=== PATIENT | female | born 1965 | race African-American/Black ===

== ENCOUNTER 2021-01-25 11:36 | Emergency (ER) | payer MEDICAID ==
[~2021-01-25] VITALS: Ht 180.3 cm; Wt 92.7 kg
[2021-01-25] MEDS ORDERED: LISI-893 PO (11:39)
[2021-01-25 13:43] VITALS: BP 147/92
[2021-01-25] MEDS ORDERED: DEXAMETHASONE 4 MG TABLET PO ONE (14:00)
== END 2021-01-25 14:09 | disposition home or self-care (01) ==
LOC: EMS 11:36
DX: S50.01XA Contusion of right elbow, initial encounter (principal); I10 Essential (primary) hypertension; Z88.6 Allergy status to analgesic agent; Z79.899 Other long term (current) drug therapy; W22.8XXA Striking against or struck by other objects, initial encounter; Y93.89 Activity, other specified; Y92.89 Other specified places as the place of occurrence of the external cause; Y99.8 Other external cause status
CPT/HCPCS: 73080; 99283; J8540

== ENCOUNTER 2021-07-19 12:21 | Emergency (ER) | payer MEDICAID ==
[~2021-07-19] VITALS: Ht 180.3 cm; Wt 85.9 kg
[~2021-07-19 12:21] MED LIST: LISI-893 PO
[2021-07-19 15:35] VITALS: BP 138/88
== END 2021-07-19 17:10 | disposition home or self-care (01) ==
LOC: EMS 12:25
DX: M25.561 Pain in right knee (principal); M25.562 Pain in left knee; I10 Essential (primary) hypertension; Z88.8 Allergy status to other drugs, medicaments and biological substances
CPT/HCPCS: 99283

== ENCOUNTER 2023-08-27 08:31 | Emergency (ER) | payer MEDICAID ==
[~2023-08-27] VITALS: Ht 180.3 cm; Wt 88.6 kg
[2023-08-27 08:37] VITALS: TEMP 98.4
[2023-08-27] MEDS: METHOCARBAMOL 500 MG TABLET PO ONE (09:39)
[2023-08-27] MEDS: ACETAMINOPHEN 500 MG TABLET PO ONE (09:40)
[2023-08-27] MEDS ORDERED: ACET-66 PO (10:41)
[2023-08-27] MEDS ORDERED: NAPR-1193 PO (10:41)
[2023-08-27] MEDS ORDERED: METH-659 PO (10:41)
[2023-08-27 10:55] VITALS: BP 132/89; PULSE 75; RESP 18
== END 2023-08-27 11:00 | disposition home or self-care (01) ==
LOC: EMS 08:35
DX: S46.911A Strain of unspecified muscle, fascia and tendon at shoulder and upper arm level, right arm, initial encounter (principal); I10 Essential (primary) hypertension; Z88.8 Allergy status to other drugs, medicaments and biological substances; X58.XXXA Exposure to other specified factors, initial encounter; Y93.89 Activity, other specified; Y92.89 Other specified places as the place of occurrence of the external cause; Y99.8 Other external cause status
CPT/HCPCS: 29240; 99283

== ENCOUNTER 2023-09-06 14:12 | Emergency (ER) | payer MEDICAID ==
[~2023-09-06] VITALS: Ht 180.3 cm; Wt 88.6 kg
[~2023-09-06 14:12] MED LIST changes: +ACET-66 PO; +METH-659 PO; +NAPR-1193 PO
[2023-09-06 14:17] VITALS: TEMP 98
[2023-09-06 15:28] VITALS: BP 130/72; PULSE 84; RESP 18
== END 2023-09-06 16:10 | disposition home or self-care (01) ==
LOC: EMS 14:12
DX: S40.011A Contusion of right shoulder, initial encounter (principal); I10 Essential (primary) hypertension; Z88.8 Allergy status to other drugs, medicaments and biological substances; X58.XXXA Exposure to other specified factors, initial encounter; Y93.89 Activity, other specified; Y92.89 Other specified places as the place of occurrence of the external cause; Y99.8 Other external cause status
CPT/HCPCS: 99281; Z7502